=== PATIENT | female | born 1945 | race Caucasian/White ===

== ENCOUNTER 2018-08-01 17:17 | Inpatient (IN) | payer OTHER ==
[~2018-08-01] VITALS: Ht 167.6 cm; Wt 74.8 kg
[2018-08-01 17:26] VITALS: BP 161/88
--- NOTE | 2018-08-01 17:38 | NUR ---
PT AMBULATED TO BED 09
--- NOTE | 2018-08-01 17:41 | NUR ---
PATIENT AMBULATED TO BED #9 WITH NURSE AND FAMILY
--- NOTE | 2018-08-01 17:49 | NUR ---
PT COMES TO ER WITH SON FOR C/O GRADUAL ONSET HEADAACHE AND ANTERIOR CHEST WALL PAIN-NON RADAITING SINCE LAST NIGHT. REPORTS MILD SOB WITH EXERTION. RESP EVEN AND UNLABORED, IN NAD. LS-CLR. SKIN W/D/I. PT DENIES FEVERS/CHILLS.
--- NOTE | 2018-08-01 18:03 | NUR ---
NO ACUTE CHNAGES IN CONDITION, VSS.
[2018-08-01] MEDS ORDERED: LORazepam 2 MG/ML VIAL IVP ONE (18:20)
[2018-08-01] MEDS ORDERED: IPRATROPIUM 0.02% 0.5 MG/2.5 ML NEBU INH ONE (18:20)
[2018-08-01] MEDS ORDERED: methylPREDNISolone SS 125 MG/2 ML VIAL IVP ONE (18:20)
[2018-08-01] MEDS ORDERED: ALBUTEROL 0.083% 2.5 MG/3 ML NEBU INH ONE (18:20)
[2018-08-01 18:29] LABS: BASOPHILS # (AUTO) 0.1 K/uL (0.00-0.22); BASOPHILS % (AUTO) 0.8 % (0.0-2.0); EOSINOPHILS # (AUTO) 0.1 K/uL (0-0.4); EOSINOPHILS % (AUTO) 1.6 % (0.0-4.0); HEMATOCRIT 40.8 % (36-48); HEMOGLOBIN 13.7 g/dL (12.0-16.0); LYMPHOCYTES # (AUTO) 2.4 K/uL (2.5-16.5); LYMPHOCYTES % (AUTO) 36.1 % (20.5-51.1); MEAN CORPUSCULAR HEMOGLOBIN 31 pg (27-31); MEAN CORPUSCULAR HGB CONC 34 g/dL (33-37); MEAN CORPUSCULAR VOLUME 91.1 fL (80-94); MONOCYTES # (AUTO) 0.5 K/uL (0.8-1.0); MONOCYTES % (AUTO) 7.1 % (1.7-9.3); NEUTROPHILS # (AUTO) 3.5 K/uL (1.8-7.7); NEUTROPHILS % (AUTO) 54.4 % (42.2-75.2); PLATELET COUNT (AUTO) 228 K/uL (140-450); RED BLOOD CELL COUNT(AUTO) 4.48 MIL/uL (4.20-5.40); RED CELL DISTRIBUTION WIDTH 12.3 % (11.6-13.7); WHITE BLOOD COUNT (AUTO) 6.5 K/uL (4.8-10.8)
--- NOTE | 2018-08-01 18:41 | NUR ---
RT TREATMENT AT [facility], PT TOLERATING WELL.
[2018-08-01 18:59] LABS: PROTHROMBIN TIME 10.2 secs (10.8-13.4)
[2018-08-01 19:02] LABS: CARBON DIOXIDE 30.7 mmol/L (21-32); CHLORIDE 103 mmol/L (98-107); CREATININE 0.6 mg/dL (0.6-1.3); GLUCOSE 161 mg/dL (74-106); POTASSIUM 3.7 mmol/L (3.5-5.1); SODIUM SERUM 140 mmol/L (136-145); UREA NITROGEN, BLOOD 14 mg/dL (7-18)
[2018-08-01 19:08] LABS: ASPARTATE AMINOTRANSFERASE 24 U/L (15-37); TOTAL BILIRUBIN 0.7 mg/dL (0.0-1.0)
--- NOTE | 2018-08-01 19:38 | NUR ---
RECEIVED REPORT FROM AM NURSE. PT RESTING IN BED, VSS, REPORTS 2/10 CHEST PRESSURE WITH DEEP INSPIRATION. ALL NEEDS MET AT THIS TIME.
--- NOTE | 2018-08-01 21:10 | NUR ---
RECEIVED CALL FROM [employer], GAVE REPORT. PT SLEEPING COMFORTABLY IN BED, VSS. ALL NEEDS MET AT THIS TIME.
--- NOTE | 2018-08-01 22:24 | NUR ---
PT SLEEPING COMFORTABLY IN BED, VSS. ALL NEEDS MET AT THIS TIME.
[2018-08-01] MEDS ORDERED: ALBUTEROL SULFATE/IPRATROPIU 3 ML SOL IH PRN (22:40)
--- NOTE | 2018-08-01 23:10 | NUR ---
Patient will be admitted to care of DR. SUTTON. Admited to TELE. Will go to room 107A. Belongings list completed. Report to KAMRON FUNES
[2018-08-01 23:20] VITALS: BP 143/74
--- NOTE | 2018-08-01 23:20 | NUR ---
RECEIVED REPORT FROM ER NURSE HUYEN AT BEDSIDE FOR CONTINUITY OF CARE. PT AAOX4. PT TRANSPORTED BY [facility]. PT IV NOTED LAC 20G SALINE LOCK. NO SOB NO S/S OF DISTRESS ON RA. BED LOWERED CALL LIGHT WITHIN REACH. PT ORIENTED TO ROOM. WILL CONTINUE TO MONITOR.
[2018-08-02] MEDS: ALBUTEROL SULFATE/IPRATROPIU 3 ML SOL IH SCH ×3 (01:00→13:29)
--- NOTE | 2018-08-02 02:36 | NUR ---
PT SLEEPING NO SOB NO S/S OF DISTRESS ON RA. WILL CONTINUE TO MONITOR.
--- NOTE | 2018-08-02 03:38 | NUR ---
PT SLEEPING NO SOB NO S/S OF DISTRESS ON RA. WILL CONTINUE TO MONITOR.
[2018-08-02 04:00] VITALS: BP 114/50
[2018-08-02] MEDS ORDERED: DEXTROSE 50% 50 ML SYR IVP PRN (05:30)
[2018-08-02] MEDS: BLOOD GLUCOSE MONITORING 1 DEV DEV FS SCH ×2 (05:36→12:10)
[2018-08-02] MEDS: INSULIN LISPRO SLIDING SCALE 100 UNITS/ML VIAL SUBQ PRN ×2 (05:38→12:12)
--- NOTE | 2018-08-02 07:18 | NUR ---
ENDORSED REPORT TO [facility] AT BEDSIDE FOR CONTINUITY OF CARE.
--- NOTE | 2018-08-02 07:20 | NUR ---
RECEIVED REPORT FROM VP [employer]ELOP[employer] NURSE, PT IS RESTING IN BED, AAOX4, AMBULATORY, PT IS ON ROOM AIR, PT HAS IV ON HER LEFT AC, PATENT, INTACT, FLUSHING WELL, NO S/S OF RESPIRATORY DISTRESS OR DISCOMFORT NOTED, SKIN IS INTACT, NO S/S OF RESPIRATORY DISTRESS OR DISCOMFORT NOTED, DISCUSSED PLAN OF CARE WITH PT, PT VERBALIZED UNDERSTANDING, SAFETY/FALL PRECAUTIONS ARE IN PLACE, CALL LIGHT IS WITHIN REACH, WILL CONTINUE TO MONITOR.
[2018-08-02 08:00] VITALS: BP 124/69
--- NOTE | 2018-08-02 08:47 | NUR ---
PATIENT HAS BEEN SCREENED AND CATEGORIZED MODERATE NUTRITION RISK. PATIENT WILL BE SEEN WITHIN 3-5 DAYS OF ADMISSION. 08/04/18 08/06/[address]
[2018-08-02] MEDS ORDERED: BUDESONIDE 0.5 MG/2 ML NEBU INH SCH (09:00)
--- NOTE | 2018-08-02 09:31 | NUR ---
CM NOTE PER [facility] DEANA HORAN PH# [phone], REVIEWS SHOULD BE SENT TO [facility] AND [facility]. ADMISSION CHART REVIEW DONE. INITIAL REVIEW FAXED TO [facility] [phone] AUNG PH# [phone] IRINA BOOTH PH# [phone] AND TO [facility] [phone] PH# [phone].
--- NOTE | 2018-08-02 11:15 | NUR ---
DR. SUTTON SPEAKING TO PATIENT AND PATIENT'S FAMILY AT BEDSIDE.
[2018-08-02 12:00] VITALS: BP 119/73
--- NOTE | 2018-08-02 13:30 | NUR ---
PT RESTING IN BED, FAMILY IS AT BEDSIDE. CALL LIGHT IS WITHIN REACH.
[2018-08-02] MEDS ORDERED: ALBU0.0912 IH (14:16)
[2018-08-02] MEDS ORDERED: PRED20TA5 PO (14:16)
[2018-08-02] MEDS ORDERED: SPIMDI INH (14:16)
--- NOTE | 2018-08-02 15:15 | NUR ---
DISCHARGE INSTRUCTIONS GIVEN, IV REMOVED, CATHETER TIP INTACT, ID WRIST BAND REMOVED.
--- NOTE | 2018-08-02 15:20 | NUR ---
PT STABLE UPON DISCHARGE, ACCOMPANIED BY HER DAUGHTER.
== END 2018-08-02 15:20 | disposition home or self-care (01) | DRG 189 ==
LOC: MED 17:17 → MTU 22:39 → OBSVTOIN 23:34
PROVIDERS: ADMIT Hospitalist; ATTEND Hospitalist
DX: J96.00 Acute respiratory failure, unspecified whether with hypoxia or hypercapnia (principal); J44.1 Chronic obstructive pulmonary disease with (acute) exacerbation; Z88.0 Allergy status to penicillin; I10 Essential (primary) hypertension; E11.9 Type 2 diabetes mellitus without complications; F17.200 Nicotine dependence, unspecified, uncomplicated; Z79.899 Other long term (current) drug therapy
CPT/HCPCS: 96374; 96375; 99285; G0378; 36415; 71045; 80053; 82948; 83880; 84484; 85025; 85379; 85610; 85730; 87081; 87205; 93005; 94640; J1815; J2060; J2930; J7613; J7620; J7626; J7644; Q0092